=== PATIENT | female | born 1965 | race Two or more races ===

== ENCOUNTER 2017-05-23 16:25 | Inpatient (IN) | payer MEDICARE, OTHER ==
[~2017-05-23] VITALS: Ht 165.1 cm; Wt 70.7 kg
[2017-05-23 17:28] LABS: Basophils # (auto) 0 uL; Basophils % (auto) 0.4 % (0.0-2.0); Eosinophils # (auto) 0.1 uL; Eosinophils % (auto) 0.7 % (0.0-7.0); Hematocrit 41.2 % (36.0-46.0); Hemoglobin 13.4 g/dL (12.2-16.2); Lymphocytes # (auto) 2.1 uL; Lymphocytes % (auto) 21.8 % (10.0-50.0); Mean Corpuscular Hemoglobin 29.4 pg (28.0-32.0); Mean Corpuscular Hgb Conc. 32.6 g/dL (32.0-36.0); Mean Corpuscular Volume 90.3 fL (80.0-100.0); Monocytes # (auto) 0.6 uL; Monocytes % (auto) 6.2 % (0.0-12.0); Neutrophils % (auto) 70.9 % (37.0-80.0); Platelet Count (auto) 144 10^3/uL (140-450); Red Blood Cells 4.56 10^6/uL (4.0-5.20); White Blood Cell 9.8 10^3/uL (4.4-10.8)
[2017-05-23 19:04] LABS: Urine Bacteria MOD /hpf (None Seen); Urine Blood Negative /uL (Negative); Urine WBC 1 /hpf (0 - 5)
[2017-05-23] MEDS ORDERED: cefTRIAXone SOD 1,000 MG VL ONE (23:42)
[2017-05-23] MEDS ORDERED: cefTRIAXone 1GM/10ml IVPUSH 10 ML IV ONE (23:45)
[2017-05-24 00:13] LABS: Albumin 3.4 g/dL (3.4-5.0); BUN/Creatinine Ratio 12.2; Calcium 8.8 mg/dL (8.5-10.1); Potassium 3.8 mmol/L (3.5-5.1)
[2017-05-24 00:16] LABS: Bilirubin, Total 0.4 mg/dL (0.2-1.0); Total Protein 6.8 g/dL (6.4-8.2)
[2017-05-24] MEDS ORDERED: VANCOMYCIN 1GM/250ML 250 ML IV ONE (02:00)
[2017-05-24] MEDS ORDERED: MORPHINE SULFATE 4 MG/ML SYR/VIAL IV ONE (02:15)
[2017-05-24] MEDS ORDERED: ONDANSETRON HCL 4 MG/2 ML VIAL IV ONE (02:15)
[2017-05-24] MEDS ORDERED: ACETAMINOPHEN 325 MG TAB PO PRN (05:30)
[2017-05-24] MEDS ORDERED: VANCOMYCIN PER PHARMACY 0 MG IV SCH (05:30)
[2017-05-24] MEDS ORDERED: TEMAZEPAM 15 MG CAP PO PRN (05:30)
[2017-05-24] MEDS ORDERED: cloNIDine HCL 0.1 MG TAB PO PRN (05:30)
[2017-05-24] MEDS ORDERED: ONDANSETRON HCL 4 MG/2 ML VIAL IV PRN (05:30)
[2017-05-24] MEDS: GABAPENTIN 300 MG CAP PO SCH ×3 (07:56→22:01)
[2017-05-24] MEDS: HYDROcodone-ACET 5/325MG TAB PO PRN ×2 (08:33→13:40)
[2017-05-24 08:50] VITALS: BP 141/86
[2017-05-24 09:00] VITALS: BP 141/86
[2017-05-24] MEDS: FAMOTIDINE 20 MG TAB PO SCH ×2 (10:45→22:06)
[2017-05-24] MEDS: ENOXAPARIN SOD 40 MG/0.4 ML SYRINGE SC SCH (10:46)
[2017-05-24 13:00] VITALS: BP 132/78
[2017-05-24] MEDS ORDERED: CLINDAMYCIN 300MG IV 50 ML IV ONE (15:45)
[2017-05-24] MEDS ORDERED: IPRATROPIUM BROM 0.5 MG/2.5ML INH SOL NEB PRN (15:45)
[2017-05-24] MEDS ORDERED: ALBUTEROL SULF 2.5 MG/0.5ML(0.5%) NEB SOLN NEB PRN (15:45)
[2017-05-24] MEDS ORDERED: CEPH250C PO (15:50)
[2017-05-24] MEDS ORDERED: GABA300C10 PO (15:50)
[2017-05-24] MEDS ORDERED: ZOLP10TA PO (15:50)
[2017-05-24] MEDS ORDERED: SULF400T11 PO (15:50)
[2017-05-24] MEDS ORDERED: BACL10TA PO (15:50)
[2017-05-24] MEDS ORDERED: MELO1TAB56 PO (15:50)
[2017-05-24] MEDS ORDERED: HYDR-4798 PO (15:50)
[2017-05-24] MEDS ORDERED: ALPR0.5T7 PO (15:50)
[2017-05-24 16:49] VITALS: BP 147/86
[2017-05-24 20:48] VITALS: BP 147/86
[2017-05-24] MEDS ORDERED: VANCOMYCIN 1GM/250ML 250 ML IV SCH (21:00)
[2017-05-24] MEDS: NICOTINE 21MG/24 HR TOPICAL PATCH TD ONE ×2 (21:59→22:00)
[2017-05-24 22:00] VITALS: BP 122/78
[2017-05-24] MEDS: INFLUENZA QUAD 2017-2018 0.5 ML SYRG IM ONE ×2 (22:00→22:01)
[2017-05-24] MEDS: CLINDAMYCIN 300MG IV 50 ML IV SCH (22:01)
[2017-05-24] MEDS: cefTRIAXone 1GM/10ml IVPUSH 10 ML IV SCH (22:01)
[2017-05-24] MEDS: BACLOFEN 10 MG TAB PO PRN (22:01)
[2017-05-25] VITALS (7 sets, daily range): BP systolic 119–140; BP diastolic 58–93
[2017-05-25] MEDS: CLINDAMYCIN 300MG IV 50 ML IV SCH ×3 (05:52→22:33)
[2017-05-25] MEDS: GABAPENTIN 300 MG CAP PO SCH ×3 (05:52→22:30)
[2017-05-25] MEDS: HYDROcodone-ACET 5/325MG TAB PO PRN ×3 (06:18→18:58)
[2017-05-25 06:44] LABS: Basophils # (auto) 0 uL; Basophils % (auto) 0.7 % (0.0-2.0); Eosinophils # (auto) 0.2 uL; Eosinophils % (auto) 2.8 % (0.0-7.0); Hemoglobin 13.3 g/dL (12.2-16.2); Lymphocytes # (auto) 1.7 uL; Lymphocytes % (auto) 27.1 % (10.0-50.0); Mean Corpuscular Hemoglobin 29.9 pg (28.0-32.0); Mean Corpuscular Volume 87.9 fL (80.0-100.0); Monocytes # (auto) 0.4 uL; Monocytes % (auto) 6.7 % (0.0-12.0); Neutrophils # (auto) 3.9 uL; Neutrophils % (auto) 62.7 % (37.0-80.0); Nucleated Red Blood Cells % 0.1 %; Platelet Count (auto) 158 10^3/uL (140-450); Red Blood Cells 4.44 10^6/uL (4.0-5.20); Red Cell Distribution Width 13.4 % (11.8-14.3); White Blood Cell 6.2 10^3/uL (4.4-10.8)
[2017-05-25 07:02] LABS: Potassium 4.2 mmol/L (3.5-5.1)
[2017-05-25 07:08] LABS: Albumin 3.1 g/dL (3.4-5.0); BUN/Creatinine Ratio 21.8
[2017-05-25 07:10] LABS: Bilirubin, Total 0.6 mg/dL (0.2-1.0); Total Protein 6.3 g/dL (6.4-8.2)
[2017-05-25] MEDS: ENOXAPARIN SOD 40 MG/0.4 ML SYRINGE SC SCH (10:00)
[2017-05-25] MEDS ORDERED: NICOTINE 21MG/24 HR TOPICAL PATCH TD SCH (10:00)
[2017-05-25] MEDS: FAMOTIDINE 20 MG TAB PO SCH ×2 (10:24→22:30)
[2017-05-25] MEDS: ALPRAZolam 0.5 MG TAB PO PRN ×2 (10:24→18:58)
[2017-05-25] MEDS: BACLOFEN 10 MG TAB PO PRN (10:24)
[2017-05-25] MEDS: cefTRIAXone 1GM/10ml IVPUSH 10 ML IV SCH (22:28)
[2017-05-25] MEDS: MULTIPLE VITAMINS W/ MINERALS TAB PO SCH (22:29)
[2017-05-25] MEDS: ASCORBIC ACID 500 MG TAB PO SCH (22:30)
[2017-05-26 05:16] VITALS: BP 127/84
[2017-05-26] MEDS: CLINDAMYCIN 300MG IV 50 ML IV SCH (05:27)
[2017-05-26] MEDS: GABAPENTIN 300 MG CAP PO SCH (05:36)
[2017-05-26 06:29] LABS: BUN/Creatinine Ratio 28.8; Bilirubin, Total 0.3 mg/dL (0.2-1.0); Calcium 8.7 mg/dL (8.5-10.1); Potassium 4.4 mmol/L (3.5-5.1); Total Protein 6.4 g/dL (6.4-8.2)
[2017-05-26 09:00] VITALS: BP 119/73
[2017-05-26] MEDS: FAMOTIDINE 20 MG TAB PO SCH (09:54)
[2017-05-26] MEDS: MULTIPLE VITAMINS W/ MINERALS TAB PO SCH (09:55)
[2017-05-26] MEDS: ASCORBIC ACID 500 MG TAB PO SCH (09:55)
[2017-05-26] MEDS: HYDROcodone-ACET 5/325MG TAB PO PRN (09:59)
[2017-05-26] MEDS: ALPRAZolam 0.5 MG TAB PO PRN (09:59)
[2017-05-26] MEDS ORDERED: CLIN1CAP4 PO (10:55)
[2017-05-26] MEDS ORDERED: SACC250C PO (10:55)
[2017-05-26 11:25] VITALS: BP 119/73
== END 2017-05-26 12:11 | disposition home or self-care (01) | DRG 603 ==
LOC: ER 16:28 → EDBD 16:28 → OVERFLOW 16:29 → CENTRAL 05-24 08:57
PROVIDERS: ADMIT Nurse Practitioner; ATTEND Internal Medicine
DX: L03.113 Cellulitis of right upper limb (principal); F17.210 Nicotine dependence, cigarettes, uncomplicated; S61.210A Laceration without foreign body of right index finger without damage to nail, initial encounter; Z53.29 Procedure and treatment not carried out because of patient's decision for other reasons; I10 Essential (primary) hypertension; Z96.642 Presence of left artificial hip joint; G47.00 Insomnia, unspecified; A49.01 Methicillin susceptible Staphylococcus aureus infection, unspecified site; W45.8XXA Other foreign body or object entering through skin, initial encounter; J44.9 Chronic obstructive pulmonary disease, unspecified; L03.011 Cellulitis of right finger; Y93.89 Activity, other specified; Y92.89 Other specified places as the place of occurrence of the external cause; Y99.8 Other external cause status; Z71.6 Tobacco abuse counseling
CPT/HCPCS: 36415; 71046; 73200; 80053; 80202; 81001; 83605; 83880; 84146; 85025; 87040; 87077; 87081; 87186; 87205; 93005; 96365; 96375; J0696; J2405; J3490

== ENCOUNTER 2017-07-09 19:10 | Emergency (ER) | payer MEDICARE, OTHER ==
[~2017-07-09] VITALS: Ht 165.1 cm; Wt 68.0 kg
[~2017-07-09 19:10] MED LIST: ALPR0.5T7 PO; BACL10TA PO; CLIN1CAP4 PO; GABA300C10 PO; HYDR-4798 PO; MELO1TAB56 PO; SACC250C PO; SULF400T11 PO; ZOLP10TA PO
[2017-07-09 20:14] LABS: Basophils # (auto) 0.1 uL; Basophils % (auto) 0.9 % (0.0-2.0); Eosinophils # (auto) 0.1 uL; Eosinophils % (auto) 1.3 % (0.0-7.0); Hematocrit 42.3 % (36.0-46.0); Hemoglobin 14.3 g/dL (12.2-16.2); Lymphocytes # (auto) 2.9 uL; Lymphocytes % (auto) 36.8 % (10.0-50.0); Mean Corpuscular Hemoglobin 30.1 pg (28.0-32.0); Mean Corpuscular Hgb Conc. 33.9 g/dL (32.0-36.0); Mean Corpuscular Volume 88.8 fL (80.0-100.0); Monocytes # (auto) 0.3 uL; Neutrophils # (auto) 4.5 uL; Nucleated Red Blood Cells % 0.1 %; Platelet Count (auto) 193 10^3/uL (140-450); Red Blood Cells 4.76 10^6/uL (4.0-5.20); Red Cell Distribution Width 14.1 % (11.8-14.3); White Blood Cell 7.8 10^3/uL (4.4-10.8)
[2017-07-09 20:31] LABS: Albumin 4.2 g/dL (3.4-5.0); BUN/Creatinine Ratio 18.4; Calcium 9.1 mg/dL (8.5-10.1); Potassium 4.3 mmol/L (3.5-5.1)
[2017-07-09 20:35] LABS: Bilirubin, Total 0.2 mg/dL (0.2-1.0); Total Protein 7.5 g/dL (6.4-8.2)
[2017-07-10] MEDS ORDERED: SILVER SULFADIAZINE 1 % TOPICAL CREAM 50GM TOP ONE (07:15)
[2017-07-10 07:18] VITALS: BP 125/96
== END 2017-07-10 07:38 | disposition home or self-care (01) ==
LOC: ER 19:10
DX: T21.14XA Burn of first degree of lower back, initial encounter (principal); I10 Essential (primary) hypertension; E78.00 Pure hypercholesterolemia, unspecified; F17.210 Nicotine dependence, cigarettes, uncomplicated; X08.8XXA Exposure to other specified smoke, fire and flames, initial encounter; Y93.89 Activity, other specified; Y99.8 Other external cause status; Y92.89 Other specified places as the place of occurrence of the external cause
CPT/HCPCS: 16000; 36415; 80053; 85025